=== PATIENT | male | born 1975 | race African-American/Black ===

== ENCOUNTER 2024-03-10 12:09 | Emergency (ER) | payer OTHER ==
[~2024-03-10] VITALS: Ht 188 cm; Wt 104.2 kg
[~2024-03-10 12:09] MED LIST: IBUP-1456 PO; METH-1182 PO
[2024-03-10 13:07] VITALS: BP 135/99; PULSE 83; RESP 16; TEMP 98.3; O2SAT 99
[2024-03-10 13:40] LABS: COVID19 ANTIGEN SOFIA FIA NEGATIVE (NEGATIVE); Rapid Influenza A Negative (Negative); Rapid Influenza B Negative (Negative)
[2024-03-10] MEDS ORDERED: AZIT-43 PO (13:52)
[2024-03-10] MEDS ORDERED: ACET500T58 PO (13:52)
[2024-03-10] MEDS ORDERED: IBUP-1454 PO (13:52)
[2024-03-10] MEDS ORDERED: BENZ100C97 PO (13:52)
[2024-03-10] MEDS ORDERED: PROM1SOL4 PO (13:52)
--- NOTE | 2024-03-10 13:53 | ED.PDOC ---
History of Present Illness HPI Comments 48 year male w/ no medical hx presents for URI symptoms Started 2 days ago C/o body aches, cough Taking Nightqul Denies CP/SOB Chief Complaint: Flu like Time Seen by MD: 12:34 Reviewed Notes: Nurses Notes, Medications, Allergies Information Source: Patient Past Medical History PAST MEDICAL HISTORY: Denies Surgical History: Denies all surgeries Family History Family History: Reviewed,noncontributory to illness, No family hx of Cancer, No family hx of DM, No family hx of Heart tiffanie, No family hx of HTN, No family hx ofKidney tiffanie, No family hx of Liver tiffanie, No family hx of Lung tiffanie, No family hx of Stroke Social History Smoker: Cigarettes Lives In: Home All Other Systems: Reviewed and Negative (Per HPI) Physical Exam General Appearance: No Apparent Distress, Normal HEENT: Normal ENT Inspection, Pharynx Normal, TMs Normal Neck: Full Range of Motion, Non-Tender, Normal, Normal Inspection Respiratory: Chest Non-Tender, Lungs Clear, No Accessory Muscle Use, No Respiratory Distress, Normal Breath Sounds Cardiovascular: No Edema, No JVD, No Murmur, No Gallop, Normal Peripheral Pulses, Regular Rate/Rhythm Breast Exam: Deferred Gastrointestinal: No Organomegaly, Non Tender, No Pulsatile Mass, Normal Bowel Sounds, Soft Genitalia: Deferred Pelvic: Deferred Rectal: Deferred Extremities: No calf tenderness, Normal capillary refill, Normal inspection, Normal range of motion, Non-tender, No pedal edema Musculoskeletal : Apperance: Normal Neurologic: Alert, No Motor Deficits, Normal Affect, Normal Mood, No Sensory Deficits Cerebellar Function: Normal Reflexes: Normal Skin: Dry, Normal Color, Warm Lymphatic: No Adenopathy Was a procedure done? Was a procedure done?: No Fever Differential Dx Differential Diagnosis: Viral Syndrome, Pharyngitis, Other X-Ray, Labs, Meds, VS Vital Signs Date Time Temp Pulse Resp B/P (MAP) Pulse Ox O2 Delivery O2 Flow Rate FiO2 03/10/24 13:07 83 16 99 Room Air 03/10/24 13:07 98.3 83 16 135/99 (111) 99 98.3 03/10/24 12:34 16 99 Room Air* 0 21 03/10/24 12:30 98.3 83 16 135/99 (111) 99 Lab Test 03/10/24 12:25 Range/Units Influenza Type A Antigen Negative Negative Influenza Type B Antigen Negative Negative SARS-CoV-2 Antigen (Rapid) Negative NEGATIVE X-Ray, Labs, Meds, VS Comment On presentation, the patient is afebrile and has stable vital signs. The patient is overall well-appearing nontoxic on exam. On physical exam, respirations even and unlabored, clear to auscultation bilaterally. Oxygen stable on room air. Did not have any focal lung findings and therefore chest x-ray was not indicated during this exam Low suspicion of strep pharyngitis given physical exam findings and patient's presenting symptoms No signs of meningismus on exam Overall, the patient is well hydrated and nontoxic. Plan for empiric tx and symptomatic control for fever and pain as needed. The patient was able to tolerate p.o. intake in the ED. at this time, patient is safe for discharge home. The exam findings and plan discussed. We will discharge home with PCP follow up and strict return precautions. Discussed that cough can linger up to 6 weeks after viral URI Supportive care and return precautions discussed Counseled viral infection and explained that antibiotics would not be helpful in resolving the illness sooner. Recommended vitamin C, rest, handwashing, and symptomatic care. Expect 2-week course with possibly of cough lingering up to 6 weeks. Nonpharmacological remedies for fluids has been recommended as well Time of 1ST Reevaluation: 13:00 Reevaluation 1ST: Improved Patient Education/Counseling: Diagnosis, Treatment Family Education/Counseling: Diagnosis, Treatment Departure 1 Departure Time of Disposition: 13:49 Impression: Primary Impression: Viral syndrome Disposition: HOME / SELF CARE / HOMELESS Condition: Stable e-Prescriptions Ibuprofen (Ibuprofen) 600 Mg Tab 1 TAB PO TID for 7 Days, #21 TAB 0 Refills Prov: ASPEN ANRANJO SMUDGER 03/10/24 Acetaminophen (Acetaminophen) 500 Mg Tab 500 MG PO Q6HP PRN for 10 Days, #40 TAB 00 Refills Prov: ASPEN NARANJO SMUDGER 03/10/24 Promethazine-Dm (Promethazine Dm 6.25-15 mg/5Ml) 1 Elle Elle 5 ML PO TID for 10 Days, #150 ML 0 Refills Prov: ASPEN NARANJO SMUDGER 03/10/24 Benzonatate (Benzonatate) 100 Mg Cap 1 CAP PO TID for 10 Days, #30 CAP 0 Refills Prov: ASPEN NARANJO SMUDGER 03/10/24 Azithromycin (Azithromycin) 250 Mg Tab 250 MG PO DAILY MDD 500 for 5 Days, #6 TAB 0 Refills 2 TABLETS ORALLY ON DAY ONE, THEN 1 TABLET ORALLY DAILY FOR 4 DAYS Prov: ASPEN NARANJO SMUDGER 03/10/24 Critical Care Note Critical Care Time?: No Stability Stability form required: No Heart Score Heart Score: Heart Score Response (Comments) Value History N/A 0 EKG N/A 0 Age N/A 0 Risk Factors N/A 0 Troponin N/A 0 Total 0 ASPEN NARANJO NP Mar 10, 2024 13:53
[2024-03-10] MEDS ORDERED: KETOROLAC TROMETH 60MG/2ML VIAL IM ONE (14:00)
== END 2024-03-10 14:00 | disposition home or self-care (01) ==
LOC: ER 12:19
DX: B34.9 Viral infection, unspecified (principal); F17.210 Nicotine dependence, cigarettes, uncomplicated; Z20.822 Contact with and (suspected) exposure to COVID-19
CPT/HCPCS: 36415; 87426; 87804